=== PATIENT | female | born 1955 | race African-American/Black ===

== ENCOUNTER 2019-11-18 18:19 | Emergency (ER) | payer MEDICAID ==
[~2019-11-18] VITALS: Ht 172.7 cm; Wt 137.0 kg
[2019-11-18 18:22] VITALS: BP 174/98
== END 2019-11-18 21:55 | disposition home or self-care (01) ==
LOC: ER 18:19
DX: S39.92XA Unspecified injury of lower back, initial encounter (principal); S49.92XA Unspecified injury of left shoulder and upper arm, initial encounter; I10 Essential (primary) hypertension; E78.00 Pure hypercholesterolemia, unspecified; Z91.041 Radiographic dye allergy status; Z91.013 Allergy to seafood; Z98.890 Other specified postprocedural states; V43.52XA Car driver injured in collision with other type car in traffic accident, initial encounter; Y93.89 Activity, other specified; Y92.488 Other paved roadways as the place of occurrence of the external cause
CPT/HCPCS: 72100; 73030; 99284